=== PATIENT | female | born 1960 | race Caucasian/White ===

== ENCOUNTER 2018-10-25 19:45 | Observation (INO) | payer BC ==
[2018-10-25] MEDS ORDERED: Aspirin 81 MG Tab.Chew PO ONE (20:36)
[2018-10-25] MEDS ORDERED: Sodium Chloride 0.9% 1,000 ML IV SCH (21:30)
[2018-10-25] MEDS ORDERED: Nitroglycerin 0.4 MG Tab.SL SL ONE (21:50)
[2018-10-25] MEDS ORDERED: Sodium Chloride 0.9% 10 ML Syringe FLUSH PRN (23:34)
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
--- NOTE | 2018-10-26 11:54 | PCM.DCSUM1 ---
Discharge Summary - Hospital Course Free Text/Narrative:: Hospital course-patient was admitted overnight for rule out DC protocol. She had 3 troponins and 3 EKGs were negative for DC. By the morning patient's symptoms had cleared. She ate and was able to get up and walk around without any difficulty. Patient was still tearful when she talked about her mother who is in swing bed currently. We will discharge her today and have a stress test outpatient later on today. Brief History: This is a 58-year-old female patient came to the ER with chest pressure. She states before she went to bed the night before admission she was thinking about her mother who is in the hospital and apparently passed out and rolled her eyes. She states she thought there were no lose her mother. She said she finally got to sleep and that she woke later on with full chest pressure L tingling in her left arm. 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 She said off and on she will chest pressure. In the middle of the night she says she had have her walker to the bathroom because she was worried. With her return to bed and went to see. As she got home after work she says she had more chest pressure and so her brought her over here over by [place] with a live. She says they tried to get urine time for the walk-in clinic but has not. She says she was given nitroglycerin in the ER but it caused neck pain, headache, feeling a we are sensational of her body. She says "she did not like it. She does not know if it helped or chest pressure. I read the ER note she was tearful talking about her mother's hospitalizations and condition. 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 She denies outright anxiety or depression at this time. She has a history of hypertension and her father had a CABG at age 40. She denies diaphoresis, nausea, vomiting or shortness of breath. She denies history of diabetes, smoking or hyperlipidemia. Diagnosis: Stroke: No - Discharge Data Discharge Date: 10/26/18 Discharge Disposition: Home, Self-Care 01 Condition: Good - Discharge Diagnosis/Problem(s) (1) Stressful life event affecting family SNOMED Code(s): 959565512 ICD Code: Z63.79 - OTHER STRESSFUL LIFE EVENTS AFFECTING FAMILY AND HOUSEHOLD Status: Acute Current Visit: Yes (2) Chest pain, rule out acute myocardial infarction SNOMED Code(s): 77342286 ICD Code: R07.9 - CHEST PAIN, UNSPECIFIED Status: Acute Current Visit: Yes - Patient Instructions Diet: Heart Healthy Diet Activity: As Tolerated Driving: May Drive Today Showering/Bathing: May Shower Other/Special Instructions: 1. Stress test at [facility] [address] [place] 3 PM today. 2. Recheck with Dr. Anna or Bernadette Nix in one week - Discharge Plan *PRESCRIPTION DRUG MONITORING PROGRAM REVIEWED*: Not Applicable *COPY OF PRESCRIPTION DRUG MONITORING REPORT IN PATIENT FRANCISCA: Not Applicable Home Medications: Home Meds Aspirin [Ecotrin EC] 81 mg PO DAILY 10/25/18 [History] Lisinopril/Hydrochlorothiazide [Lisinopril-Hctz 10-12.5 mg Tab] 1 tab PO DAILY 10/25/18 [History] Forms: ED Department Discharge Referrals: Sergei Estrella MD [Primary Care Provider] - - Discharge Summary/Plan Comment DC Time >30 min.: No - Patient Data Vitals - Most Recent: Last Vital Signs Temp 98.4 F 10/26/18 05:45 Pulse 69 10/26/18 05:45 Resp 16 10/26/18 05:45 BP 117/66 10/26/18 05:45 Pulse Ox 97 10/26/18 05:45 Weight - Most Recent: 193 lb 12.8 oz I&O - Last 24 hours: Intake & Output 10/25/18 10/26/18 10/26/18 22:59 06:59 14:59 Intake Total 1000 Balance 1000 Lab Results - Last 24 hrs: Laboratory Results - last 24 hr 10/25/18 10/25/18 10/25/18 Range/Units 20:44 20:44 20:44 WBC 8.0 (4.5-12.0) X10-3/uL RBC 4.27 (3.23-5.20) x10(6)uL Hgb 13.4 (11.5-15.5) g/dL Hct 38.4 (30.0-51.3) % MCV 90.1 (80-96) fL MCH 31.3 (27.7-33.6) pg MCHC 34.8 (32.2-35.4) g/dL RDW 12.7 (11.5-15.5) % Plt Count 214 (125-369) X10(3)uL MPV 7.4 (7.4-10.4) fL Neut % (Auto) 67.3 (46-82) % Lymph % (Auto) 22.2 (13-37) % [place] % (Auto) 7.7 (4-12) % Eos % (Auto) 2 (1.0-5.0) % Baso % (Auto) 1 (0-2) % Neut # (Auto) 5.4 (1.6-8.3) # Lymph # (Auto) 1.8 (0.6-5.0) # [place] # (Auto) 0.6 (0.0-1.3) # Eos # (Auto) 0.2 (0.0-0.8) # Baso # (Auto) 0.0 (0.0-0.2) # Sodium 142 (135-145) mmol/L Potassium 3.5 (3.5-5.3) mmol/L Chloride 106 (100-110) mmol/L Carbon Dioxide 29 (21-32) mmol/L BUN 21 H (7-18) mg/dL Creatinine 1.1 H (0.55-1.02) mg/dL Est Cr Clr Drug Dosing TNP Estimated GFR (MDRD) 51 L (>60) BUN/Creatinine Ratio 19.1 (9-20) Glucose 99 (80-116) mg/dL Calcium 9.0 (8.6-10.2) mg/dL Magnesium 2.1 (1.8-2.5) mg/dL Total Bilirubin 0.3 (0.1-1.3) mg/dL AST 13 (5-25) IU/L ALT 22 (12-36) U/L Alkaline Phosphatase 84 (56-112) IU/L Troponin I < 0.017 L (<0.017-0.056) ng/mL Total Protein 7.2 (6.0-8.0) g/dL Albumin 3.6 (3.2-4.6) g/dL Globulin 3.6 g/dL Albumin/Globulin Ratio 1.0 10/25/18 10/26/18 10/26/18 Range/Units 23:57 05:45 05:45 WBC (4.5-12.0) X10-3/uL RBC (3.23-5.20) x10(6)uL Hgb (11.5-15.5) g/dL Hct (30.0-51.3) % MCV (80-96) fL MCH (27.7-33.6) pg MCHC (32.2-35.4) g/dL RDW (11.5-15.5) % Plt Count (125-369) X10(3)uL MPV (7.4-10.4) fL Neut % (Auto) (46-82) % Lymph % (Auto) (13-37) % [place] % (Auto) (4-12) % Eos % (Auto) (1.0-5.0) % Baso % (Auto) (0-2) % Neut # (Auto) (1.6-8.3) # Lymph # (Auto) (0.6-5.0) # [place] # (Auto) (0.0-1.3) # Eos # (Auto) (0.0-0.8) # Baso # (Auto) (0.0-0.2) # Sodium 143 (135-145) mmol/L Potassium 3.5 (3.5-5.3) mmol/L Chloride 110 (100-110) mmol/L Carbon Dioxide 28 (21-32) mmol/L BUN 18 (7-18) mg/dL Creatinine 1.1 H (0.55-1.02) mg/dL Est Cr Clr Drug Dosing 47.95 Estimated GFR (MDRD) 51 L (>60) BUN/Creatinine Ratio 16.4 (9-20) Glucose 96 (80-116) mg/dL Calcium 8.5 L (8.6-10.2) mg/dL Magnesium (1.8-2.5) mg/dL Total Bilirubin (0.1-1.3) mg/dL AST (5-25) IU/L ALT (12-36) U/L Alkaline Phosphatase (56-112) IU/L Troponin I < 0.017 L < 0.017 L (<0.017-0.056) ng/mL Total Protein (6.0-8.0) g/dL Albumin (3.2-4.6) g/dL Globulin g/dL Albumin/Globulin Ratio Med Orders - Current: Current Medications Sodium Chloride (Normal Saline) 1,000 mls @ 500 mls/hr IV ASDIRECTED SUSAN Last Admin: 10/25/18 21:35 Dose: 500 mls/hr Sodium Chloride (Saline Flush) 10 ml FLUSH ASDIRECTED PRN PRN Reason: IV Use Last Admin: 10/25/18 23:20 Dose: 10 ml Discontinued Medications Aspirin (Aspirin) 243 mg PO ONETIME ONE Stop: 10/25/18 20:37 Last Admin: 10/25/18 20:18 Dose: 243 mg Nitroglycerin (Nitrostat) 0.4 mg SL ONETIME ONE Stop: 10/25/18 21:51 Last Admin: 10/25/18 21:50 Dose: 0.4 mg
--- NOTE | 2018-10-27 08:40 | CR ---
INDICATION: Chest pressure. CHEST: PA and lateral views of the chest were obtained, 10/25/18 - no comparisons. The heart appeared normal in size and shape. Minimal degenerative changes are noted in the mid thoracic spine. An active infiltrate or effusion was not identified. Somewhat prominent AP diameter and some hyperaeration is seen; however, the diaphragm leaves are only minimally flattened. The possibility of a mild degree of COPD would be a consideration. Overlying EKG leads are noted. IMPRESSION: No acute process. MTDD
== END 2018-10-26 14:49 | disposition home or self-care (01) ==
LOC: FB.ED 19:45 → FB.MS 21:54
PROVIDERS: ADMIT Family Medicine; ATTEND Family Medicine
DX: R07.89 Other chest pain (principal); I10 Essential (primary) hypertension; Z87.891 Personal history of nicotine dependence; Z63.79 Other stressful life events affecting family and household; Z82.49 Family history of ischemic heart disease and other diseases of the circulatory system; Z79.82 Long term (current) use of aspirin; Z79.899 Other long term (current) drug therapy
CPT/HCPCS: 36415; 71046; 80048; 80053; 83735; 84484; 85025; 93005; 96360; 99284-25; A9270-GY; G0378; J7030

== ENCOUNTER 2018-10-30 01:39 | Emergency (ER) | payer BC ==
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
[2018-10-30] MEDS ORDERED: LORazepam 1 MG Tab PO ONE (02:25)
== END 2018-10-30 09:30 | disposition home or self-care (01) ==
LOC: FB.ED 01:39
DX: R07.9 Chest pain, unspecified (principal); I10 Essential (primary) hypertension; Z79.82 Long term (current) use of aspirin; Z79.899 Other long term (current) drug therapy
CPT/HCPCS: 36415; 71045; 80048; 84484; 93005; 99285-25; A9270-GY